=== PATIENT | female | born 1980 | race African-American/Black ===

== ENCOUNTER → 2022-09-12 14:55 | Outpatient (CLI) | payer OTHER, SELFPAY ==
[2022-09-12 16:06] LABS: Estimated Glomerular Filt Rate > 60 mL/min (>60)
== END ==
PROVIDERS: Radiology Diagnostic Radiology; Referring Provider Internal Medicine Hematology & Oncology; Visit Provider Internal Medicine Hematology & Oncology
DX: C50.411 Malignant neoplasm of upper-outer quadrant of right female breast (principal)
CPT/HCPCS: 36415; 82565

== ENCOUNTER → 2022-09-13 18:37 | Outpatient (CLI) | payer OTHER, SELFPAY ==
--- NOTE | 2022-09-13 18:39 | DI.MRI.S_ITS ---
PROCEDURE: MR ABDOMEN WO/W CON INDICATIONS: LIVER LESIONS/BREAST CANCER TECHNIQUE: Coronal HASTE, axial 2D FLASH in- and [id number]; axial breath-hold T2 FSE. Dynamic axial VIBE during the administration of contrast; post-contrast coronal VIBE or 2D FLASH with fat saturation from the hepatic dome to the iliac crests. Optional diffusion weighted imaging and ADC may be performed. COMPARISON: [facility], CT, CT CHEST ABDOMEN PELVIS WITH CONTRAST, 05/10/2022, 13:46. [facility], RG, CT THORAX WITH CONTRAST, 08/18/2022, 11:15. [facility], RG, CT ABDOMEN/PELVIS WITH CONTRAST, 08/18/2022, 11:15. FINDINGS: Image quality: Suboptimal due to motion artifact. Lung bases: No basal pleural effusions. Liver: Multiple liver cysts are present as seen previously. The segment 7 lesion described in the report for the most recent CT of the abdomen and pelvis demonstrates T2 hyperintensity and peripheral nodular discontinuous enhancement on postcontrast images typical of a hemangioma. This finding measures approximately 1.9 centimeters (7/32). A 1.1 centimeter structure is present in segment 5 (series 25, image 43) which is indeterminate. No substantial T2 hyperintensity identified in this area. The finding demonstrates homogeneous arterial and portal venous phase enhancement, and is hypointense to the adjacent liver on delayed/hepatobiliary images. Allowing for differences in modality, it is not significantly changed in size since at least 05/10/2022. Solid organs: Gallbladder is unremarkable. Biliary system is non dilated. Pancreas is normal in morphology. Spleen is normal in size and enhancement. No adrenal nodules. Both kidneys demonstrate normal size and enhancement, without hydronephrosis. Nodes and vessels: No retroperitoneal or mesenteric adenopathy by size criteria. Aorta and inferior vena cava are normal in size. Bowel and peritoneum: Unenhanced bowel loops are normal in caliber. No free fluid. IMPRESSION: 1. Previously described finding in hepatic segment 7 is consistent with a hemangioma. 2. A 1.1 centimeter structure in hepatic segment 5 is indeterminate. It could represent an atypical hemangioma but other etiologies / metastatic disease are not excluded. Allowing for differences in modality it does not appear significantly changed since at least 05/10/2022. Attention on follow-up exams is recommended. Dictated by: Shivam Caraballo M.D. on 09/14/2022 at 9:11 Approved by: Shivam Caraballo M.D. on 09/14/2022 at 9:38
== END ==
PROVIDERS: Referring Provider Internal Medicine Hematology & Oncology; Visit Provider Internal Medicine Hematology & Oncology
DX: C50.411 Malignant neoplasm of upper-outer quadrant of right female breast (principal); C50.811 Malignant neoplasm of overlapping sites of right female breast; K76.9 Liver disease, unspecified
CPT/HCPCS: 74183